=== PATIENT | male | born 1995 | race African-American/Black ===

== ENCOUNTER 2019-05-14 15:56 | Observation (INO) | payer BC ==
[2019-05-14] MEDS ORDERED: MORPHINE 2 MG/ML SYR ONE ×2 (16:55→19:43)
[2019-05-14] MEDS ORDERED: NA CHLORIDE 0.9% 1,000 ML ONE (16:56)
[2019-05-14] MEDS ORDERED: ONDANSETRON 4 MG/2 ML VIAL ONE (16:56)
[2019-05-14 17:02] LABS: Absolute Lymphocytes (CBC) 0.7 K/uL (0.7-4.9); Basophils % 0.3 % (0-1.3); Hematocrit 43.8 % (39.6-49.0); Lymphocytes % 9.8 % (15.3-44.8); MPV 8.4 fL (7.6-11.3); RBC Red Blood Cell Count 5.03 M/uL (4.33-5.43)
[2019-05-14 17:13] LABS: ALT/SGPT 18 U/L (12-78); AST/SGOT 16 U/L (15-37); Albumin 3.9 g/dL (3.4-5.0); Alkaline Phosphatase 70 U/L (45-117); BUN Blood Urea Nitrogen 17 mg/dL (7-18); Bicarbonate 28 mmol/L (21-32); Bilirubin Direct 0.1 mg/dL (0-0.2); Bilirubin Total 0.3 mg/dL (0.2-1.0); Glucose Level 103 mg/dL (74-106); Lipase 81 U/L (73-393); Potassium 3.8 mmol/L (3.5-5.1); Protein, Total 7.8 g/dL (6.4-8.2); Sodium Level 139 mmol/L (136-145)
--- NOTE | 2019-05-14 19:08 | RAD REPORT ---
EXAM DESCRIPTION: CT - Abdomen Pelvis W Contrast - 05/14/2019 6:47 pm CLINICAL HISTORY: Abdominal pain. Vomiting COMPARISON: 2010 TECHNIQUE: Computed axial tomography of the abdomen and pelvis was obtained. 100 cc Isovue-300 is ad ministered intravenously. Oral contrast was given. All CT scans are performed using dose optimization technique as appropriate and may include automated exposure control or mA/KV adjustment according to patient size. FINDINGS: The liver, spleen, pancreas, adrenals and kidneys appear unremarkable. The proximal and mid appendix are normal. The distal appendix is borderline enlarged. Stranding withi n the adjacent fat is not seen. Trace amount of free fluid No evidence of diverticulitis IMPRESSION: Borderline thickening of the distal appendix is equivocal for mild tip appendicitis
--- NOTE | 2019-05-14 19:41 | ER ---
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 Reports vomiting, denies diarrhea, fever. Transition of care: patient was not received from another setting of care. Onset of symptoms was May 14, 2019. Risk Assessment: Do you want to hurt yourself or someone else? Patient reports no desire to harm self or others. Initial Sepsis Screen: Does the patient meet any 2 criteria? No. Patient's initial sepsis screen is negative. Does the patient have a suspected source of infection? Yes: Acute abdominal pain. Care prior to arrival: None. 16:03 Method Of Arrival: Ambulatory aj 16:03 Acuity: CECE 3 aj1 Triage Assessment: 16:06 General: Appears uncomfortable, Behavior is calm, cooperative, appropriate for age. aj1 Pain: Complains of pain in abdomen diffusely. Neuro: Level of Consciousness is awake, alert, obeys commands. Cardiovascular: Patient's skin is warm and dry. Respiratory: Airway is patent Respiratory effort is even, unlabored, Respiratory pattern is regular, symmetrical. GI: Reports lower abdominal pain, upper abdominal pain, nausea, vomiting. Historical: - Allergies: 16:06 NKA; aj1 - Home Meds: 16:06 None [Active]; aj1 - PMHx: 16:06 None; aj1 - PSHx: 16:06 Hernia repair; aj1 - Immunization history:: Adult Immunizations up to date. - Coronavirus screen:: The patient has NOT traveled to [place] in the past 14 days. - Social history:: Smoking status: Patient/guardian denies using tobacco. - Ebola Screening: : Patient denies travel to an Ebola-affected area in the 21 days before illness onset. Screenin:30 Abuse screen: Denies threats or abuse. Nutritional screening: No deficits noted. vc Tuberculosis screening: No symptoms or risk factors identified. Fall Risk None identified. Assessment: 16:15 GI: Bowel sounds present X 4 quads. Abd is soft Abdomen is tender to palpation in vc umbilical area, right lower quadrant and left lower quadrant. 16:15 General: Appears uncomfortable, Behavior is calm, cooperative, appropriate for age, vc quiet. Pain: Complains of pain in left lower quadrant and right lower quadrant and umbilical area. Neuro: Level of Consciousness is obeys commands, Oriented to person, place, time, situation. Cardiovascular: Capillary refill < 3 seconds Patient's skin is warm and dry. Respiratory: Respiratory effort is even, unlabored, Respiratory pattern is regular, symmetrical. : No signs and/or symptoms were reported regarding the genitourinary system. EENT: No signs and/or symptoms were reported regarding the EENT system. Derm: Skin temperature is warm. Musculoskeletal: Circulation, motion, and sensation intact. Capillary refill < 3 seconds, Range of motion: intact in all extremities. 17:00 Reassessment: Patient and/or family updated on plan of care and expected duration. Pain vc level reassessed. patient laying with. 18:00 Reassessment: Patient and/or family updated on plan of care and expected duration. Pain vc level reassessed. Patient states feeling better. 19:00 Reassessment: Patient and/or family updated on plan of care and expected duration. Pain vc level reassessed. Patient is alert, oriented x 3, equal unlabored respirations, skin warm/dry/pink. Patient states feeling better. Patient states symptoms have improved. 20:00 Reassessment: Patient and/or family updated on plan of care and expected duration. Pain vc level reassessed. Patient is alert, oriented x 3, equal unlabored respirations, skin warm/dry/pink. Patient states feeling better. 20:45 Reassessment: Patient and/or family updated on plan of care and expected duration. Pain vc level reassessed. Patient is alert, oriented x 3, equal unlabored respirations, skin warm/dry/pink. Patient states symptoms have improved. Neuro: Level of Consciousness is awake, alert, obeys commands, Oriented to person, place, time, situation, Appropriate for age. Vital Signs: 16:06 BP 116 / 72; Pulse 55; Resp 18; Temp 98.2; Pulse Ox 100% on R/A; Weight 415.04 kg (R); aj1 Height 6 ft. 1 in. (185.42 cm) (R); Pain 8/10; 18:00 BP 117 / 67; Pulse 55; Resp 16; Pulse Ox 98% on R/A; vc 18:30 BP 116 / 68; Pulse 51; Pulse Ox 98% on R/A; vc 19:30 BP 124 / 63; Pulse 58; Resp 18; Pulse Ox 100% on R/A; vc 20:30 BP 141 / 84; Pulse 54; Resp 20; Pulse Ox 100% on R/A; vc 16:06 Body Mass Index 120.72 (415.04 kg, 185.42 cm) aj1 ED Course: 16:02 Patient arrived in ED. mr 16:05 Triage completed. aj1 16:06 Arm band placed on Patient placed in an exam room. aj1 16:09 Armaan Phillips MD is Attending Physician. [facility] 16:09 Armaan Calles PA is PHCP. cp 16:30 Radiology exam delayed due to lab results not completed at this time. (BUN/Creatinine) nj IV insertion attempt and/or patient not having appropriate IV at this time. 16:30 Patient has correct armband on for positive identification. vc 16:34 Do Cook, DENIS is Primary Nurse. vc 19:39 Antonio Benavides MD is Hospitalizing Provider. cp 20:42 No provider procedures requiring assistance completed. Patient admitted, IV remains in ea place. 21:05 Urine Dipstick--Ancillary (enter results) Sent. vc Administered Medications: 16:50 Drug: Zofran 4 mg Route: IVP; Site: right antecubital; vc 17:30 Follow up: Response: No adverse reaction vc 16:50 Drug: NS 0.9% 1000 ml Route: IV; Rate: 1 bolus; Site: right antecubital; vc 16:50 Drug: morphine 2 mg Route: IVP; Site: right antecubital; vc 19:45 Drug: morphine 2 mg Route: IVP; Site: right antecubital; vc 20:45 Follow up: Response: No adverse reaction; Pain is decreased vc 19:45 Drug: Zosyn 3.375 grams Route: IVPB; Infused Over: 60 mins; Site: right antecubital; vc 20:45 Follow up: Response: No adverse reaction; IV Intake: 100ml vc 20:39 Drug: NS 0.9% 1000 ml Route: IV; Rate: 1 bolus; Site: right antecubital; ea 21:04 Follow up: IV Status: Infusion continued upon admission; IV Intake: 12ml vc Intake: 20:45 IV: 100ml; Total: 100ml. vc 21:04 IV: 12ml; Total: 112ml. vc Outcome: 19:39 Decision to Hospitalize by Provider. cp 20:43 Admitted to OR accompanied by nurse, via wheelchair, with chart, Report called to ea Report given to OR nurse 20:43 Condition: stable 20:43 Condition: stable vc 20:45 Patient left the ED. vc Signatures: Megan Munoz RN RN aj1 Armaan Phillips MD MD cha Rivera, Alexus mr Armaan Calles PA PA cp Jordan, Nathan nj Antunez, Elena, RN RN ea Calcote, Vanessa, RN RN vc Corrections: (The following items were deleted from the chart) 21:07 21:03 Patient left the ED. vc vc
--- NOTE | 2019-05-14 19:41 | EDPHYS ---
Physician Documentation [facility] Name: Mark Anthony Eli Age: 24 yrs Sex: Male : 1995 Arrival Date: 05/14/2019 Time: 16:[address] Private MD: AYDEE Physician Armaan Phillips HPI: 05/14 16:45 This 24 yrs old Black Male presents to ER via Ambulatory with complaints of Abdominal cp Pain, Vomiting. 16:45 The patient presents with abdominal pain in the lower abdomen, in the periumbilical cp area. Onset: The symptoms/episode began/occurred this morning. The symptoms radiate to Associated signs and symptoms: Pertinent positives: nausea and vomiting, Pertinent negatives: chest pain, constipation, diarrhea, fever, testicular pain. Patient reports history of hernia repair as child. Historical: - Allergies: 16:06 NKA; aj1 - Home Meds: 16:06 None [Active]; aj1 - PMHx: 16:06 None; aj1 - PSHx: 16:06 Hernia repair; aj1 - Immunization history:: Adult Immunizations up to date. - Coronavirus screen:: The patient has NOT traveled to [place] in the past 14 days. - Social history:: Smoking status: Patient/guardian denies using tobacco. - Ebola Screening: : Patient denies travel to an Ebola-affected area in the 21 days before illness onset. ROS: 16:51 Eyes: Negative for injury, pain, redness, and discharge. cp 16:51 Constitutional: Positive for poor PO intake, Negative for body aches, chills, fever. 16:51 ENT: Negative for drainage from ear(s), ear pain, sore throat, difficulty swallowing, difficulty handling secretions. 16:51 Cardiovascular: Negative for chest pain. 16:51 Respiratory: Negative for cough, shortness of breath, wheezing. 16:51 Abdomen/GI: Positive for abdominal pain, nausea and vomiting, Negative for diarrhea, constipation, black/tarry stool, rectal bleeding. 16:51 Back: Positive for radiated pain. 16:51 : Negative for urinary symptoms, testicular pain 16:51 Skin: Negative for rash. 16:51 Neuro: Negative for altered mental status, headache, weakness. 16:51 All other systems are negative. Exam: 16:53 Head/Face: Normocephalic, atraumatic. cp 16:53 Constitutional: The patient appears in no acute distress, alert, awake, non-toxic, well developed, well nourished, uncomfortable. 16:53 Eyes: Periorbital structures: appear normal, Conjunctiva: normal, no exudate, no injection, Sclera: no appreciated abnormality, Lids and lashes: appear normal, bilaterally. 16:53 ENT: External ear(s): are unremarkable, Nose: is normal, Mouth: Lips: moist, Oral mucosa: moist, Posterior pharynx: Airway: no evidence of obstruction, patent. 16:53 Chest/axilla: Inspection: normal, Palpation: is normal, no crepitus, no tenderness. 16:53 Cardiovascular: Rate: bradycardic, Rhythm: regular. 16:53 Respiratory: the patient does not display signs of respiratory distress, Respirations: normal, no use of accessory muscles, labored breathing, is not present, Breath sounds: are clear throughout, no decreased breath sounds. 16:53 Abdomen/GI: Inspection: abdomen appears normal, Bowel sounds: active, all quadrants, Palpation: soft, in all quadrants, moderate abdominal tenderness, in the umbilical area, right lower quadrant and left lower quadrant, rebound tenderness, is not appreciated, voluntary guarding, is elicited in the umbilical area, right lower quadrant and left lower quadrant. Vital Signs: 16:06 BP 116 / 72; Pulse 55; Resp 18; Temp 98.2; Pulse Ox 100% on R/A; Weight 415.04 kg (R); aj1 Height 6 ft. 1 in. (185.42 cm) (R); Pain 8/10; 18:00 BP 117 / 67; Pulse 55; Resp 16; Pulse Ox 98% on R/A; vc 18:30 BP 116 / 68; Pulse 51; Pulse Ox 98% on R/A; vc 19:30 BP 124 / 63; Pulse 58; Resp 18; Pulse Ox 100% on R/A; vc 20:30 BP 141 / 84; Pulse 54; Resp 20; Pulse Ox 100% on R/A; vc 16:06 Body Mass Index 120.72 (415.04 kg, 185.42 cm) aj1 MDM: 16:09 Patient medically screened. hyaden 16:55 Differential diagnosis: appendicitis, gastritis, Pyelonephritis, Testicular Torsion, cp Ureterolithiasis, urinary tract infection, colitis, diverticulitis. 19:30 Data reviewed: vital signs, nurses notes, lab test result(s), radiologic studies, CT cp scan, I have discussed the patient's presentation/case with the attending Emergency Department Physician; and as a result, I will admit patient. 19:35 Physician consultation: Antonio Benavides MD was called at 19:35, was contacted at 19:35, cp regarding admission, to the medical/surgical unit. patient's condition. 05/14 16:26 Order name: Basic Metabolic Panel 05/14 16:26 Order name: CBC with Diff 05/14 16:26 Order name: Creatinine for Radiology 05/14 16:26 Order name: Hepatic Function cp 05/14 16:26 Order name: Lipase 05/14 16:26 Order name: Urine Microscopic Only 05/14 16:26 Order name: CT Abd/Pelvis - PO and IV Contrast 05/14 17:04 Order name: CBC with Automated Diff; Complete Time: 17:34 EDMS 05/14 17:34 Interpretation: Normal except: PEDRO% 84.8; LYM% 9.8. 05/14 17:10 Order name: Creatinine (Radiology Only); Complete Time: 17:34 EDMS 05/14 17:14 Order name: Basic Metabolic Panel; Complete Time: 17:34 EDMS 05/14 17:14 Order name: Liver (Hepatic) Function; Complete Time: 17:34 EDMS 05/14 17:34 Interpretation: Normal except: GLOB 3.9; A/G 1.0. cp 05/14 17:14 Order name: Lipase; Complete Time: 17:34 EDMS 05/14 19:09 Order name: CT; Complete Time: 19:21 EDWV 05/14 19:21 Interpretation: Report reviewed. 05/14 20:40 Order name: Urine Dipstick--Ancillary (enter results) cm6 05/14 16:26 Order name: IV Saline Lock; Complete Time: 18:02 cp 05/14 16:26 Order name: Labs collected and sent; Complete Time: 18:02 cp 05/14 16:26 Order name: Urine Dipstick-Ancillary (obtain specimen); Complete Time: 21:06 cp 05/14 19:37 Order name: NPO; Complete Time: 20:24 cp Administered Medications: 16:50 Drug: Zofran 4 mg Route: IVP; Site: right antecubital; vc 17:30 Follow up: Response: No adverse reaction vc 16:50 Drug: NS 0.9% 1000 ml Route: IV; Rate: 1 bolus; Site: right antecubital; vc 16:50 Drug: morphine 2 mg Route: IVP; Site: right antecubital; vc 19:45 Drug: morphine 2 mg Route: IVP; Site: right antecubital; vc 20:45 Follow up: Response: No adverse reaction; Pain is decreased vc 19:45 Drug: Zosyn 3.375 grams Route: IVPB; Infused Over: 60 mins; Site: right antecubital; vc 20:45 Follow up: Response: No adverse reaction; IV Intake: 100ml vc 20:39 Drug: NS 0.9% 1000 ml Route: IV; Rate: 1 bolus; Site: right antecubital; ea 21:04 Follow up: IV Status: Infusion continued upon admission; IV Intake: 12ml vc Disposition: 05/14/19 19:39 Hospitalization ordered by Antonio Benavides for Observation. Preliminary diagnosis is Acute appendicitis. - Bed requested for Telemetry/MedSurg (observation). - Status is Observation. vc - Condition is Stable. - Problem is new. - Symptoms have improved. Addendum: 05/17/2019 07:56 Co-signature as Attending Physician, Armaan Phillips MD I agree with the assessment and c salazar plan of care. Signatures: Dispatcher [employer] EDMegan Calhoun RN RN aj1 Sandra Aldrich RN RN mw Anderson, Corey, MD MD cha Page, Corey, PA PA cp Antunez, Elena, RN RN ea Calcote, Vanessa RN DENIS oates Corrections: (The following items were deleted from the chart) 05/14 20:05 19:39 Hospitalization Ordered by Antonio Benavides MD for Observation. Preliminary mw diagnosis is Acute appendicitis. Bed requested for Telemetry/MedSurg (observation). Status is Observation. Condition is Stable. Problem is new. Symptoms have improved. cp 21:03 20:05 05/14/2019 19:39 Hospitalization Ordered by Antonio Benavides MD for Observation. vc Preliminary diagnosis is Acute appendicitis. Bed requested for Telemetry/MedSurg (observation). Status is Observation. Condition is Stable. Problem is new. Symptoms have improved. mw
[2019-05-14] MEDS ORDERED: PIPER/TAZO/NS 3.375gm 3.375 GM/100 ML BAG ONE (19:43)
[2019-05-14] MEDS ORDERED: MORPHINE 4 MG/ML SYR IV PRN ×2 (19:48→23:11)
[2019-05-14] MEDS ORDERED: ONDANSETRON 4 MG/2 ML VIAL IV PRN (19:48)
[2019-05-14] MEDS: D5 0.45 NS 1,000 ML IV SCH (20:00)
[2019-05-14] MEDS ORDERED: SUCCINYLCHOLINE 20 MG/ML (10 ML) IV ONE (21:37)
[2019-05-14 21:44] LABS: Urine Blood NEGATIVE (NEG); Urine Glucose NEGATIVE (NEG); Urine Protein NEGATIVE (NEG)
[2019-05-14] MEDS ORDERED: propofoL 200 MG/20 ML VIAL IV ONE (21:45)
[2019-05-14] MEDS ORDERED: MIDAZOLAM HCL 2 MG/2 ML INJ ONE (21:45)
[2019-05-14] MEDS ORDERED: ROCURONIUM 50 MG/5 ML VIAL IV ONE (21:45)
[2019-05-14] MEDS ORDERED: FENTANYL CITR 250 MCG/5 ML ONE (21:45)
--- NOTE | 2019-05-14 21:52 | P.HP ---
Date of Service: 05/14/19 PC: This 24-year-old male presents emergency room with severe lower abdominal pain for diagnosis and treatment. HPC: Patient states that he has not felt well all week, and today he began to have pain in the lower portion of his abdomen. States it is actually just to the left of the lower midline. However hurts every time he walks, and the pain in the appears to be intensifying. PMH: Negative PSHx: No prior surgeries SOC: No known allergies SYS REVIEW: No cough, wheeze, shortness of breath. No chest pain or palpitations. No urinary complaints. Denies any hypertension, diabetes, or sickle cell. O/E awake alert vital signs are stable uncomfortable HEENT: Nonicteric Chest: Air entry equal bilaterally ABD: Tender with guarding in the right lower quadrant LOCO: Intact DATA: CT scan suggests early appendicitis at the distal appendix IMPRESSION: Acute abdomen with appendicitis PLAN: I will take him to the operating room for laparoscopic possible open appendectomy. The risks of this procedure have been discussed. The possibility of bleeding, infection, injury to the blood vessels and surrounding structures were explained. Abscess formation, wound infections were outlined. He understands and wants to proceed.
[2019-05-14] MEDS ORDERED: NEOSTIGMINE 1 MG/ML -5 ML ONE (22:32)
[2019-05-14] MEDS ORDERED: GLYCOPYRROLATE 0.2 MG/ML SYR ONE (22:33)
--- NOTE | 2019-05-14 22:46 | P.OP ---
Preoperative diagnosis: Acute abdomen Postoperative diagnosis: The same Primary procedure: Laparoscopic appendectomy Anesthesia: General anesthesia Estimated blood loss: Less than 10 cc Specimen: 9 sent Findings: Umbilical hernia Operative Technique: The patient brought the operating room placed supine on the table or after the induction of adequate general endotracheal anesthesia, the area then was prepped with a DuraPrep solution, and he was draped in usual aseptic manner. Attention was turned towards the emboli kiss. He had a large why the emboli kiss the header firm knot just beneath the plate. A skin incision was made this brought down through the skin and subcutaneous tissue. The Visiport was now used to enter the peritoneal cavity. We could see we were cutting through scar tissue and indeed be in countered a Prolene suture. We were then able to enter the peritoneal cavity and created pneumoperitoneum to approximately 12 mm of mercury. Under direct vision a 5 mm trocar was placed in the lower midline, and another 5 in the right upper quadrant. We could now visualize the peritoneal cavity. The cecum was identified. It was retracted up out of the true pelvis. The patient had been also placed in Trendelenburg and rolled to the left. The appendix was identified. It was noted mildly congested. The junction of the appendix with the cecum was identified. An opening was made into the mesentery of the appendix at this point. A linear Stapler was now introduced into the peritoneal cavity at the umbilical trocar site. The 5 mm camera was in the right upper quadrant. We could see the we are across. The instrument was fired. The mesentery of the appendix was now taken down using a vascular reload. This pus was placed into an Endo-Catch and brought out through the umbilical trocar site. The abdomen was quickly scan to see if there is any other intra-abdominal pathology. Nothing obvious was seen. Attention was turned towards the emboli kiss. 2 sutures of absorbable material used to approximate the facile defect at the emboli kiss. At this point adequate hemostasis having been ensured, the pneumoperitoneum was collapsed, the sutures tied, and alejandra were applied to the skin. At the end of the procedure he was stable when sent to the recovery room. Needle sponge instrument count were correct. No drains were placed. Complications: None Transferred to: Recovery Room Condition: Good
[2019-05-14] MEDS ORDERED: HYDROCODONE/APAP 7.5/325 MG TAB PO PRN (23:11)
[2019-05-15] MEDS: D5 0.45 NS 1,000 ML IV SCH ×2 (00:18→04:00)
[2019-05-15 01:30] VITALS: BMI 24.1
[2019-05-15 04:07] VITALS: O2SAT 100
[2019-05-15] MEDS ORDERED: INFLUENZA VACCINE (for 3y+) 0.5 ML DOSE IMVAC ONE (08:00)
[2019-05-15 08:40] VITALS: BP 131/74; TEMP 98
== END 2019-05-15 10:41 | disposition home health service (06) ==
LOC: ER 15:56 → ERHOLD 19:47 → 2ND 20:58
PROVIDERS: ADMIT Surgery; ATTEND Surgery
PROC: 0DTJ4ZZ Resection of Appendix, Percutaneous Endoscopic Approach (ICD-10-PCS; principal; 2019-05-14 21:30)
DX: K35.80 Unspecified acute appendicitis (principal)
CPT/HCPCS: 85025; 80048; 36415; 80076; 88304; 81003; 83690; 74177; 96375; 96374; 99285; 44970; Q9967; J2704; J0330; J2250; J3010; J2543; J2270 ×2; J2710; J7799; J7030; J2405 ×2; G0378 ×2

== ENCOUNTER 2019-05-16 09:03 | Emergency (ER) | payer BC ==
[2019-05-16] MEDS ORDERED: ONDANSETRON 4 MG (ODT) TAB ONE (09:44)
--- NOTE | 2019-05-16 10:23 | ER ---
Nurse's Notes [facility] Name: Mark Anthony Eli Age: 24 yrs Sex: Male : 1995 Arrival Date: 05/16/2019 Time: 09:06 Bed 8 Private MD: Diagnosis: Encounter for wound check Presentation: 05/16 09:19 Presenting complaint: Patient states: I had my appendix out at 2130 on 05/14/19. I think ch one of my alejandra is coming out and the Hydrocodone they gave me for pain is not helping. I cannot stand up right, it hurts too much. Transition of care: patient was not received from another setting of care. Onset of symptoms was May 15, 2019 at 08:00. Risk Assessment: Do you want to hurt yourself or someone else? Patient reports no desire to harm self or others. Initial Sepsis Screen: Does the patient meet any 2 criteria? No. Patient's initial sepsis screen is negative. Does the patient have a suspected source of infection? No. Patient's initial sepsis screen is negative. Care prior to arrival: Medication(s) given: hydrocodone. 09:19 Method Of Arrival: Wheelchair 09:19 Acuity: CECE 5 ch Triage Assessment: 09:21 General: Appears in no apparent distress. comfortable, Behavior is calm, cooperative, ch appropriate for age. Pain: Complains of pain in abdomen. Cardiovascular: No deficits noted. Respiratory: No deficits noted. Derm: Skin is healthy with good turgor, Skin is dry, Skin is normal, black. Historical: - Allergies: 09: NKA; ch - Home Meds: : [place] Oral [Active]; ch - PMHx: 09:21 None; - PSHx: 09:21 Appendectomy; Hernia repair; Knee surgery; - Immunization history:: Adult Immunizations up to date, Flu vaccine is up to date. - Coronavirus screen:: The patient has NOT traveled to [place] in the past 14 days. The patient has NOT had contact with known/suspected case of Coronavirus?. - Social history:: Smoking status: Patient denies any tobacco usage or history of. Patient/guardian denies using alcohol, street drugs. - Ebola Screening: : Patient negative for fever greater than or equal to 101.5 degrees Fahrenheit, and additional compatible Ebola Virus Disease symptoms Patient denies exposure to infectious person Patient denies travel to an Ebola-affected area in the 21 days before illness onset No symptoms or risks identified at this time. Screenin:14 Abuse screen: Denies threats or abuse. Denies injuries from another. Nutritional ch screening: No deficits noted. Tuberculosis screening: No symptoms or risk factors identified. Fall Risk None identified. Assessment: 10:14 Reassessment: Patient appears in no apparent distress at this time. No changes from previously documented assessment. Patient and/or family updated on plan of care and expected duration. Pain level reassessed. Patient is alert, oriented x 3, equal unlabored respirations, skin warm/dry/pink. 10:14 Neuro: No deficits noted. Cardiovascular: No deficits noted. Respiratory: No deficits ch noted. Injury Description: pt has healing post surgical wounds on stomach, pt has slight opening on lower bellybutton. no signs of wound dehiscences. pt is tender to abdomen, reports nausea with palpation pt has small amount of bright red blood. Vital Signs: 09:21 BP 125 / 77; Pulse 50; Resp 12; Temp 98; Pulse Ox 99% on R/A; Weight 97.52 kg; Height 6 ch ft. 1 in. (185.42 cm); Pain 5/10; 10:14 BP 129 / 84; Pulse 52; Resp 14; Temp 98.1(O); Pulse Ox 96% ; Pain 5/10; ch 09:21 Body Mass Index 28.36 (97.52 kg, 185.42 cm) ED Course: 09:06 Patient arrived in ED. rg4 09:13 Karan Oneal PA is PHCP. jr8 09:13 Armaan Phillips MD is Attending Physician. jr8 09:19 Xochilt Lazo, DENIS is Primary Nurse. ch 09:20 Triage completed. ch 09:21 Arm band placed on left wrist. Patient placed in an exam room, on a stretcher, on pulse oximetry. 09:22 Patient has correct armband on for positive identification. Placed in gown. Bed in low ch position. Call light in reach. Side rails up X 1. Adult w/ patient. Pulse ox on. NIBP on. Warm blanket given. Verbal reassurance given. 09:30 No provider procedures requiring assistance completed. Patient did not have IV access during this emergency room visit. Wound care: to post surgical located on umbilical area was cleaned with with normal saline, dressed with band aid, Karan assesses wound site and alejandra. post surgical wound is healing well, slight opening but it is shallow and bleeding is controlled. no signs of dehiscence , Patient tolerated well. 10:22 Antonio Benavides MD is Referral Physician. jr8 Administered Medications: 09:42 Drug: Zofran 4 mg Route: PO; sg 10:24 Follow up: Response: No adverse reaction ch Outcome: : Discharge ordered by . jr8 10:28 Discharged to home via wheelchair, with family. 10:28 Condition: improved 10:28 Discharge instructions given to patient, family, Instructed on discharge instructions, follow up and referral plans. medication usage, Demonstrated understanding of instructions, follow-up care, medications, Prescriptions given X 1. 10:29 Patient left the ED. Signatures: Xochilt Lazo RN DENIS Tito Bess RN RN Amisha Agustin RN RN Karan Oneal, ALEXIS ESPINOZA jrGinger Horner rg4
--- NOTE | 2019-05-16 10:24 | EDPHYS ---
Physician Documentation [facility] Name: Mark Anthony Eli Age: 24 yrs Sex: Male : 1995 Arrival Date: 05/16/2019 Time: 09:06 Bed 8 Private MD: ED Physician Armaan Phillips HPI: 05/16 10:17 This 24 yrs old Black Male presents to ER via Wheelchair with complaints of Post jr8 Surgical Bleeding, Post Surgical Pain. 10:17 Onset: The symptoms/episode began/occurred acutely, yesterday. Associated signs and jr8 symptoms: The patient has no apparent associated signs or symptoms. The patient has not experienced similar symptoms in the past. The patient has been recently seen by a physician:. Patient status post up day 2 from appendectomy. Stated that he noticed some bleeding to umbilical site . Historical: - Allergies: : NKA; ch - Home Meds: : [place] Oral [Active]; ch - PMHx: : None; ch - PSHx: :21 Appendectomy; Hernia repair; Knee surgery; ch - Immunization history:: Adult Immunizations up to date, Flu vaccine is up to date. - Coronavirus screen:: The patient has NOT traveled to [place] in the past 14 days. The patient has NOT had contact with known/suspected case of Coronavirus?. - Social history:: Smoking status: Patient denies any tobacco usage or history of. Patient/guardian denies using alcohol, street drugs. - Ebola Screening: : Patient negative for fever greater than or equal to 101.5 degrees Fahrenheit, and additional compatible Ebola Virus Disease symptoms Patient denies exposure to infectious person Patient denies travel to an Ebola-affected area in the 21 days before illness onset No symptoms or risks identified at this time. ROS: 10:17 Eyes: Negative for injury, pain, redness, and discharge, ENT: Negative for injury, jr8 pain, and discharge, Neck: Negative for injury, pain, and swelling, Cardiovascular: Negative for chest pain, palpitations, and edema, Respiratory: Negative for shortness of breath, cough, wheezing, and pleuritic chest pain, Abdomen/GI: Negative for abdominal pain, nausea, vomiting, diarrhea, and constipation, Back: Negative for injury and pain, MS/Extremity: Negative for injury and deformity, Skin: Negative for injury, rash, and discoloration, Neuro: Negative for headache, weakness, numbness, tingling, and seizure. Exam: 10:17 Eyes: Pupils equal round and reactive to light, extra-ocular motions intact. Lids and jr8 lashes normal. Conjunctiva and sclera are non-icteric and not injected. Cornea within normal limits. Periorbital areas with no swelling, redness, or edema. ENT: Nares patent. No nasal discharge, no septal abnormalities noted. Tympanic membranes are normal and external auditory canals are clear. Oropharynx with no redness, swelling, or masses, exudates, or evidence of obstruction, uvula midline. Mucous membranes moist. Neck: Trachea midline, no thyromegaly or masses palpated, and no cervical lymphadenopathy. Supple, full range of motion without nuchal rigidity, or vertebral point tenderness. No Meningismus. Cardiovascular: Regular rate and rhythm with a normal S1 and S2. No gallops, murmurs, or rubs. Normal PMI, no JVD. No pulse deficits. Respiratory: Lungs have equal breath sounds bilaterally, clear to auscultation and percussion. No rales, rhonchi or wheezes noted. No increased work of breathing, no retractions or nasal flaring. Back: No spinal tenderness. No costovertebral tenderness. Full range of motion. Skin: Warm, dry with normal turgor. Normal color with no rashes, no lesions, and no evidence of cellulitis. MS/ Extremity: Pulses equal, no cyanosis. Neurovascular intact. Full, normal range of motion. Neuro: Awake and alert, GCS 15, oriented to person, place, time, and situation. Cranial nerves II-XII grossly intact. Motor strength 5/5 in all extremities. Sensory grossly intact. Cerebellar exam normal. Normal gait. 10:17 Abdomen/GI: Inspection: Patient has three trochar sites noted to abdomen. Umbilical one with mild occasional oozing of blood noted. No dehiscence. Arielle still in place. Mild pain to palpation of surgical sites. No erythema or signs for infection. No large amount of blood that could be expressed with palpation, Bowel sounds: active, all quadrants, Palpation: soft, in all quadrants, rebound tenderness, is not appreciated, voluntary guarding, is not appreciated, involuntary guarding, is not appreciated, no appreciated organomegaly. Vital Signs: 09:21 BP 125 / 77; Pulse 50; Resp 12; Temp 98; Pulse Ox 99% on R/A; Weight 97.52 kg; Height 6 ch ft. 1 in. (185.42 cm); Pain 5/10; 10:14 BP 129 / 84; Pulse 52; Resp 14; Temp 98.1(O); Pulse Ox 96% ; Pain 5/10; ch 09:21 Body Mass Index 28.36 (97.52 kg, 185.42 cm) ch MDM: 09:16 Patient medically screened. [facility] 10:17 Data reviewed: vital signs, nurses notes, and as a result, I will discharge patient. jr8 Data interpreted: Pulse oximetry: on room air is 99 %. Interpretation: normal. Counseling: I had a detailed discussion with the patient and/or guardian regarding: the historical points, exam findings, and any diagnostic results supporting the discharge/admit diagnosis, the need for outpatient follow up, a general surgeon, to return to the emergency department if symptoms worsen or persist or if there are any questions or concerns that arise at home. ED course: Patient has f/u with Dr. Benavides this Friday. Discussed with family that there was only mild amount of blood without continuous drainage. Recommended to continue dressing changes and to f/u with Dr. Benavides as scheduled. Nothing else that needs to be done emergently at this time. If bleeding were to worsen to come back to ED for further evaluation . Administered Medications: 09:42 Drug: Zofran 4 mg Route: PO; sg 10:24 Follow up: Response: No adverse reaction Disposition: 05/17 08:28 Co-signature as Attending Physician, Armaan Phillips MD I agree with the assessment and [facility] plan of care. Disposition: 05/16/19 10:23 Discharged to Home. Impression: Encounter for wound check . - Condition is Stable. - Discharge Instructions: Incision Care, Adult, Seroma. - Prescriptions for Zofran ODT 4 mg Oral tablet,disintegrating - place 1 tablet by TRANSLINGUAL route every 8 hours As needed; 12 tablet. - Medication Reconciliation Form, Thank You Letter, Antibiotic Education, Prescription Opioid Use form. - Follow up: Antonio Benavides MD; When: 5 - 6 days; Reason: Wound Recheck, Recheck today's complaints, Re-evaluation by your physician. - Problem is new. - Symptoms have improved. Signatures: Xochilt Lazo, RN RN Tito Bess RN RN Armaan Phillips MD MD cha Smirch, Shelby, RN RN Karan Oneal PA PA jr8 Corrections: (The following items were deleted from the chart) 05/16 10:29 10:23 05/16/2019 10:23 Discharged to Home. Impression: Encounter for wound check . ss Condition is Stable. Forms are Medication Reconciliation Form, Thank You Letter, Antibiotic Education, Prescription Opioid Use. Follow up: Antonio Benavides; When: 5 - 6 days; Reason: Wound Recheck, Recheck today's complaints, Re-evaluation by your physician. Problem is new. Symptoms have improved. jr8
[2019-05-16 10:41] VITALS: BP 129/84; TEMP 98.1; O2SAT 96
== END 2019-05-16 10:29 | disposition home or self-care (01) ==
LOC: ER 09:03
DX: Z48.01 Encounter for change or removal of surgical wound dressing (principal); Z98.890 Other specified postprocedural states
CPT/HCPCS: 99284

== ENCOUNTER 2023-01-28 13:21 | Emergency (ER) | payer BC, SELFPAY ==
[2023-01-28 14:02] LABS: SARS-CoV-2 Antigen Rapid Res Negative (Negative)
--- NOTE | 2023-01-28 14:35 | ER ---
Nurse's Notes [facility] Name: Mark Anthony Eli Age: 27 yrs Sex: Male : 1995 Arrival Date: 01/28/2023 Time: 13:21 Bed DIS3 Private MD: Diagnosis: Acute upper respiratory infection, unspecified Presentation: 01/28 13:27 Chief complaint: Headache, cough, pain with cough, and sore throat x 4 days. hb Coronavirus screen: Client presents with at least one sign or symptom that may indicate coronavirus-19. Standard/surgical mask placed on the client. Provider contacted for isolation considerations. Ebola Screen: No symptoms or risks identified at this time. Initial Sepsis Screen: Does the patient meet any 2 criteria? No. Patient's initial sepsis screen is negative. Does the patient have a suspected source of infection? No. Patient's initial sepsis screen is negative. Risk Assessment: Do you want to hurt yourself or someone else? Patient reports no desire to harm self or others. Onset of symptoms was January 24, 2023. 13:27 Method Of Arrival: Ambulatory hb 13:27 Acuity: CECE 4 hb Triage Assessment: 13:28 General: Appears in no apparent distress. Behavior is calm, cooperative. Pain: Pain hb currently is 6 out of 10 on a pain scale. Neuro: Level of Consciousness is awake, alert, obeys commands, Oriented to person, place, time, situation. Cardiovascular: Patient's skin is warm and dry. Respiratory: Respiratory effort is even, unlabored, Respiratory pattern is regular, symmetrical. Historical: - Allergies: 13:28 NKA; hb - Home Meds: 13:28 None [Active]; hb - PMHx: 13:28 None; hb - PSHx: 13:28 Appendectomy; Knee - Left; Hernia Repair; hb - Immunization history:: Adult Immunizations up to date. - Social history:: Smoking status: Patient denies any tobacco usage or history of. - Family history:: not pertinent. - Hospitalizations: : No recent hospitalization is reported. Screenin:[facility] ED Fall Risk Assessment (Adult) Score/Fall Risk Level 0 - 2 = Low Risk hb Oriented to surroundings, Maintained a safe environment. Abuse screen: Denies threats or abuse. Denies injuries from another. Nutritional screening: No deficits noted. Tuberculosis screening: No symptoms or risk factors identified. Assessment: 13:39 General: See triage assessment.. hb Vital Signs: 13:27 BP 115 / 68; Pulse 74; Resp 16; Temp 98.2(TE); Pulse Ox 98% on R/A; Weight 104.33 kg; hb Height 6 ft. 2 in. ; Pain 6/10; 14:40 BP 114 / 69; Pulse 74; Resp 15; Temp 98.2; Pulse Ox 100% ; jl7 13:27 Body Mass Index 29.53 (104.33 kg, 187.96 cm) hb 13:27 Pain Scale: Adult hb ED Course: 13:24 Patient arrived in ED. im 13:28 Triage completed. hb 13:29 Arm band placed on. hb 13:31 Chandler Farnsworth MD is Attending Physician. rn 13:56 Patient has correct armband on for positive identification. Provided Education on: . hb 13:56 No provider procedures requiring assistance completed. Patient did not have IV access hb during this emergency room visit. Administered Medications: No medications were administered Medication: 14:40 VIS not applicable for this client. jl7 Outcome: 14:35 Discharge ordered by . rn 14:40 Discharged to home ambulatory, jl7 14:40 Condition: stable 14:40 Discharge instructions given to patient, Instructed on discharge instructions, follow up and referral plans. medication usage, Demonstrated understanding of instructions, follow-up care, medications, Prescriptions given X 1, 14:41 Patient left the ED. jl7 Signatures: Chandler Farnsworth MD MD rn Baxter, Heather RN Irvin Mireles RN RN jl7 Mendoza, Itzel Corrections: (The following items were deleted from the chart) 13:29 13:28 Allergies: No Known Allergies; hb hb
--- NOTE | 2023-01-28 14:35 | EDPHYS ---
Physician Documentation [facility] Name: Mark Anthony Eli Age: 27 yrs Sex: Male : 1995 Arrival Date: 01/28/2023 Time: 13:21 Bed DIS3 Private MD: ED Physician Chandler Farnsworth HPI: 01/28 13:59 This 27 yrs old Black Male presents to ER via Ambulatory with complaints of Flu rn Symptoms. 13:59 The patient or guardian reports cough, flu symptoms, low-grade fever, no appetite. rn Onset: The symptoms/episode began/occurred 4 day(s) ago. Severity of symptoms: At their worst the symptoms were mild, in the emergency department the symptoms are unchanged. Modifying factors: The symptoms are alleviated by nothing, the symptoms are aggravated by nothing. Associated signs and symptoms: Pertinent positives: rhinorrhea, sore throat, Pertinent negatives: chest pain. The patient has not experienced similar symptoms in the past. The patient has not recently seen a physician. Multiple sick family members recently.. Historical: - Allergies: 13:28 NKA; hb - Home Meds: 13:28 None [Active]; hb - PMHx: 13:28 None; hb - PSHx: 13:28 Appendectomy; Knee - Left; Hernia Repair; hb - Immunization history:: Adult Immunizations up to date. - Social history:: Smoking status: Patient denies any tobacco usage or history of. - Family history:: not pertinent. - Hospitalizations: : No recent hospitalization is reported. ROS: 13:59 Constitutional: Positive for subjective fever and chills Eyes: Negative for injury, rn pain, redness, and discharge, ENT: Positive for nasal congestion and sore throat Cardiovascular: Negative for chest pain, palpitations, and edema, Respiratory: Positive for cough, negative for shortness of breath Abdomen/GI: Negative for abdominal pain MS/Extremity: Negative for injury and deformity, Skin: Negative for injury, rash, and discoloration, Neuro: Negative for weakness, numbness, tingling, and seizure, Exam: 13:59 Constitutional: This is a well developed, well nourished patient who is awake, alert, rn and in no acute distress. Head/Face: Normocephalic, atraumatic. Eyes: Periorbital areas with no swelling, redness, or edema. ENT: No stridor, moist mucous membranes Neck: Trachea midline, no masses palpated, and no cervical lymphadenopathy. Supple, full range of motion without nuchal rigidity, or vertebral point tenderness. No Meningismus. Cardiovascular: Regular rate and rhythm. No pulse deficits. Respiratory: No increased work of breathing, no retractions or nasal flaring. Abdomen/GI: Soft, non-tender Vital Signs: 13:27 BP 115 / 68; Pulse 74; Resp 16; Temp 98.2(TE); Pulse Ox 98% on R/A; Weight 104.33 kg; hb Height 6 ft. 2 in. ; Pain 6/10; 14:40 BP 114 / 69; Pulse 74; Resp 15; Temp 98.2; Pulse Ox 100% ; jl7 13:27 Body Mass Index 29.53 (104.33 kg, 187.96 cm) hb 13:27 Pain Scale: Adult hb MDM: 13:31 Patient medically screened. rn 14:34 Differential Diagnosis: Bronchitis Influenza Upper Respiratory Infection Sinusitis rn Pharyngitis Viral Syndrome. Data reviewed: vital signs, nurses notes, lab test result(s), and as a result, I will discharge patient. Counseling: I had a detailed discussion with the patient and/or guardian regarding the historical points, exam findings, and any diagnostic results supporting the discharge/admit diagnosis, lab results, the need for outpatient follow up, to return to the emergency department if symptoms worsen or persist or if there are any questions or concerns that arise at home. Special discussion: I discussed with the patient/guardian in detail that at this point there is no indication for admission to the hospital. It is understood, however, that if the symptoms persist or worsen the patient needs to return immediately for re-evaluation. 01/28 13:35 Order name: Flu; Complete Time: 14:34 rn 01/28 13:35 Order name: Strep; Complete Time: 14:34 rn 01/28 13:35 Order name: SARS RAPID; Complete Time: 14:34 rn 01/28 14:03 Order name: Throat Culture EDMS Administered Medications: No medications were administered Disposition Summary: 01/28/23 14:35 Discharge Ordered Notes: Location: Home rn Problem: new rn Symptoms: have improved rn Condition: Stable rn Diagnosis - Acute upper respiratory infection, unspecified rn Followup: rn - With: Private Physician - When: As needed - Reason: Recheck today's complaints, Re-evaluation by your physician Discharge Instructions: - Discharge Summary Sheet rn - Upper Respiratory Infection, Adult rn Forms: - Work release form bd - Medication Reconciliation Form rn - Thank You Letter rn - Antibiotic intake rn - Prescription Opioid Use rn - Patient Portal Instructions rn - Leadership Thank You Letter rn Prescriptions: - Zithromax Z-Juan 250 mg Oral Tablet - take 1 tablet ORAL route as directed for 5 days Day 1 - take two (2) tablets rn one time. Day 2, 3, 4 , 5 take one (1) tablet once daily.; 6 tablet; Refills: 0, Product Selection Permitted Signatures: Dispatcher [employer] EDChandler Saunders MD MD rn Baxter, Heather, RN RN Corrections: (The following items were deleted from the chart) 13:29 13:28 Allergies: No Known Allergies; hb hb
[2023-01-28 14:56] VITALS: TEMP 98.2
[2023-01-28 14:58] VITALS: BP 114/69; O2SAT 100
== END 2023-01-28 14:41 | disposition home or self-care (01) ==
LOC: ER 13:21
DX: J06.9 Acute upper respiratory infection, unspecified (principal); Z11.52 Encounter for screening for COVID-19
CPT/HCPCS: 36415; 87070; 87081; 87804; 87811; 99283

== ENCOUNTER 2025-01-14 13:58 | Emergency (ER) | payer OTHER, SELFPAY ==
--- OUTSIDE RECORDS SUMMARY | 2025-01-14 14:02 | XMS REPORT | Continuity of Care Document ---
Author Name Unknown Address [address] [facility] [address] [place] [address] Organization [facility] [place] Address [address] [facility] [address] [place] [address] Care Team Providers Care Poster Name Role Phone YOHANNES BAKER Primary Care Physician Unavailab VILMA Ho Attending Clinician UnavailVILMA House Attending Clinician UnavailVilma House MD Attending Clinician CHRISTINA HERNANDEZ Attending Clinician Unavailable CHRISTINA HERNANDEZ Attending Clinician Unavailable Isis Stephenson Attending Clinician Isis FONTENOT Attending Clinician Unavailable CHRISTINA HERNANDEZ Admitting Clinician Unavailable Isis FONTENOT Admitting Clinician Unavailable Payers Payer Name Policy Type Policy Number Effective Date Expirati on Date Source ALLIED BENEFIT [id number] 2024 00:00:00 BLUE ESSENTIALS O [id number] 00:00:00 Allergies, Adverse Reactions, Alerts Allergy Name Allergy Type Status Severity Reaction(s) Onset Date Inactive Date Treating Clinician Comments Source NO KNOWN ALLERGIE S Drug Class Active [facility] Social History Social Habit Start Date Stop Date Quantity Comments Source Sexual orientation U [facility] Sex assigned at 1995 00:00:00 1995 00:00:00 [facility] Smoking Status Start Date Stop Date Source Tobacco smoking consumption unknown [facility] Medications Ordered Medication Name Filled Medication Name Start Date Stop Date Current Medication? Ordering Clinician Indication Dosage Frequency Signature (SIG) Comments Components Source naproxen sodium 550 mg tablet 10-13 00:00: 00 Yes [id number] 550mg Take 1 tablet by mouth in the morning and 1 tablet in the evening. Take with meals. [facility] methylPREDN ISolone 4 mg tablets 10-13 00:00: 00 Yes [id number] Take by mouth SEE-INSTRU CTIONS. follow package directions [facility] methocarbam oL 500 mg tablet 10-13 00:00: 00 10-19 04:59 :00 No [id number] 500mg Take 1 tablet by mouth in the morning and 1 tablet at noon and 1 tablet in the evening. Do all this for 5 days. [facility] iohexol (OMNIPAQUE 350 BULK-100 mL) injection 120 mL 07-16 02:30: 00 07-16 02:20 :00 No 120mL 120 mL, Intravenou s, ONCE, 1 dose, Fri07/16/19 at 2130, Routine [facility] morpHINE injection 4 mg 07-16 02:30: 00 07-16 01:22 :00 No 4mg 4 mg, Slow IV Push, ONCE, 1 dose, Fri07/16/19 at 2130, Routine [facility] ondansetron (ZOFRAN (PF)) injection 4 mg 07-16 02:15: 00 07-16 01:22 :00 No 4mg 4 mg, Slow IV Push, ONCE, 1 dose, Fri07/16/19 at 2115, SARITHA [facility] NaCl 0.9% (NS) bolus infusion 1,000 mL 07-16 02:15: 00 07-16 03:31 :00 No 1000mL at 999 mL/hr, 1,000 mL, IV Infusion, ONCE, 1 dose, 07/16/19 at 2115, STAT [facility] ondansetron (ZOFRAN ODT) 4 mg disintegrat ing tablet 07-15 00:00: 00 Yes [id number] 4mg Take 1 tablet by mouth every 8 (eight) hours as needed for Nausea and Vomiting (N/V). [facility] dicyclomine 20 mg tablet 07-15 00:00: 00 Yes [id number] 20mg Take 1 tablet by mouth 4 (four) times daily. [facility] Vital Signs Vital Name Observation Time Observation Value Comments S servando Systolic blood pressure 2024-10-26 14:57:00 129 mm[Hg] [facility] Diastolic blood pressure 2024-10-26 14:57:00 76 mm[Hg] [facility] Heart rate 2024-10-26 14:57:00 57 /min [facility] Body height 2024-10-26 14:57:00 188 cm [facility] Body weight 2024-10-26 14:57:00 108.41 kg [facility] BMI 2024-10-26 14:57:00 30.69 kg/m2 [facility] Oxygen saturation in Arterial blood by Pulse oximetry 2024-10-26 14:57:00 98 /min [facility] Systolic blood pressure 2024-10-13 06:47:00 151 mm[Hg] [facility] Diastolic blood pressure 2024-10-13 06:47:00 85 mm[Hg] [facility] Heart rate 2024-10-13 06:47:00 64 /min [facility] Body temperature 2024-10-13 06:47:00 37.06 Leann [facility] Respiratory rate 2024-10-13 06:47:00 20 /min [facility] Oxygen saturation in Arterial blood by Pulse oximetry 2024-10-13 06:47:00 97 /min [facility] Body height 2024-10-13 05:20:00 188 cm [facility] Body weight 2024-10-13 05:20:00 109.317 kg [facility] BMI 2024-10-13 05:20:00 30.94 kg/m2 [facility] Systolic blood pressure 2019-07-17 04:00:00 126 mm[Hg] [facility] Diastolic blood pressure 2019-07-17 04:00:00 58 mm[Hg] [facility] Heart rate 2019-07-17 04:00:00 48 /min [facility] Respiratory rate 2019-07-17 04:00:00 18 /min [facility] Oxygen saturation in Arterial blood by Pulse oximetry 2019-07-17 04:00:00 98 /min [facility] Body temperature 2019-07-17 00:14:00 36.94 Leann [facility] Body height 2019-07-17 00:14:00 185.4 cm [facility] Body weight 2019-07-17 00:14:00 99.791 kg [facility] BMI 2019-07-17 00:14:00 29.03 kg/m2 [facility] Procedures Procedure Date / Time Performed Performing Clinician Source CT ABDOMEN PELVIS W CONTRAST 2019-07-17 02:25:57 Isis Fontenot [facility] LIPASE 2019-07-17 01:21:00 Isis Fontenot [facility] MAGNESIUM 2019-07-17 01:21:00 [facility] COMP. METABOLIC PANEL (56000) 2019-07-17 01:21:00 Isis Fontenot [facility] CBC WITH DIFFERENTIAL 2019-07-17 01:21:00 Isis Fontenot [facility] URINALYSIS 2019-07-17 01:21:00 [facility] Encounters Start Date/Time End Date/Time Encounter Type Admission Type Attending Clinicians Care Facility Care Department Encounter ID Source 2024-11-30 00:00:00 2024-11-30 00:00:00 Outpatient VILMA HOUGH [facility] [id number] [facility] 2024-10-26 10:15:00 2024-10-26 10:15:57 [facility] [id number] [facility] 2024-10-13 00:25:00 2024-10-13 01:51:00 Emergency X CHRISTINA HERNANDEZ [facility] ERT [id number] [facility] 2019-07-16 19:18:06 2019-07-16 23:39:00 Emergency Juan [facility]onIsis [facility] [id number] [facility] 2019-07-16 19:18:06 2019-07-16 23:39:00 Emergency X Isis FONTENOT [facility] ERT [id number] [facility] Results Test Description Test Time Test Comments Results Result Comments Source CT ABDOMEN PELVIS W CONTRAST 2019-06 04:07:0 3 1. ?Borderline hepatomegaly with mild nonspecific periportal edema. Nofocal lesions are seen. 2. ?Mild splenomegaly and enlarged main portal vein suggest portalhypertension. 3. ?Heterogenous attenuation of the gallbladder may represent stones versussludge. Recommend right upper quadrant ultrasound, as clinically indicated.No evidence of biliary ductal dilatation. Preliminary Report Dictated by Resident: Jakob Galeas ?MD. Emeli, have reviewed this study and agree with theabove report.EXAM: CT ABDOMEN AND PELVIS WITH CONTRAST HISTORY: Generalized abdominal pain, infection suspected COMPARISON: None. TECHNIQUE AND FINDINGS: Contiguous axial imaging from the level of the lungbases through the pubic symphysis was performed after the uncomplicatedadministration of 120 cc of intravenous Omnipaque contrast. Coronal andsagittal reconstructions were obtained. ?Auto mA and/or iterativereconstruction were used to reduce radiation dose. FINDINGS: LOWER THORAX: The lungs bases are clear. No cardiomegaly. LIVER: No focal hepatic lesions. Borderline hepatomegaly. Normal contour.Nonspecific mild periportal edema is seen. GALLBLADDER AND BILIARY TREE: Heterogenous attenuation of the gallbladdermay represent stones versus sludge. No evidence of biliary ductaldilatation. SPLEEN: Borderline enlarged spleen measuring 14 cm. No focal lesions areseen. PANCREAS: No ductal dilation or masses. ADRENAL GLANDS: No adrenal nodules. KIDNEYS: No hydronephrosis, stones, or masses. PERITONEUM AND RETROPERITONEUM: No free air or fluid. LYMPH NODES: No lymphadenopathy. GI TRACT: No dilation or wall thickening. Post surgical changes of anappendectomy. PELVIS/BLADDER: Unremarkable. VESSELS: Enlarged main portal vein measuring 2 cm in diameter. BONES AND SOFT TISSUES: No suspicious lytic or sclerotic bony lesions. [facility], Radiant Results Inft User - 07/16/2019 11:08 PM CDTEXAM: CT ABDOMEN AND PELVIS WITH CONTRASTHISTORY: Generalized abdominal pain, infection suspectedCOMPARISON: None.TECHNIQUE AND FINDINGS: Contiguous axial imaging from the level of the lungbases through the pubic symphysis was performed after the uncomplicatedadministration of 120 cc of intravenous Omnipaque contrast. Coronal andsagittal reconstructions were obtained. Auto mA and/or iterativereconstruction were used to reduce radiation dose.FINDINGS:LOWER THORAX: The lungs bases are clear. No cardiomegaly.LIVER: No focal hepatic lesions. Borderline hepatomegaly. Normal contour.Nonspecific mild periportal edema is seen.GALLBLADDER AND BILIARY TREE: Heterogenous attenuation of the gallbladdermay represent stones versus sludge. No evidence of biliary ductaldilatation.SPLEEN: Borderline enlarged spleen measuring 14 cm. No focal lesions areseen.PANCREAS: No ductal dilation or masses.ADRENAL GLANDS: No adrenal nodules.KIDNEYS: No hydronephrosis, stones, or masses.PERITONEUM AND RETROPERITONEUM: No free air or fluid.LYMPH NODES: No lymphadenopathy.GI TRACT: No dilation or wall thickening. Post surgical changes of anappendectomy.PELVIS/BLADDER: Unremarkable.VESSELS: Enlarged main portal vein measuring 2 cm in diameter.BONES AND SOFT TISSUES: No suspicious lytic or sclerotic bony lesions.IMPRESSION1. Borderline hepatomegaly with mild nonspecific periportal edema. Nofocal lesions are seen.2. Mild splenomegaly and enlarged main portal vein suggest portalhypertension.3. Heterogenous attenuation of the gallbladder may represent stones versussludge. Recommend right upper quadrant ultrasound, as clinically indicated.No evidence of biliary ductal dilatation.Preliminary Report Dictated by Resident: Jakob Collins MD., have reviewed this study and agree with theabove report. [facility]54:00* Test Item Value Reference Range Interpretation Comme nts APPEARANCE (test code = 6892819294) Clear Clear COLOR (test code = 4527179128) Yellow Yellow PH (test code = 7500380410) 4.8-8.0 SP GRAVITY (test code = 2660954756) 1.003-1.030 GLU U QUAL (test code = 0783515883) Normal Normal BLOOD (test code = 4838697233) Negative Negative KETONES (test code = 0212069905) 20 mg/dL Negative A PROTEIN (test code = 2887-8) Negative Negative UROBILIN (test code = 0761424083) 2.0 mg/dL Normal A BILIRUBIN (test code = 9074753644) Negative Negative NITRITE (test code = 3903538653) Negative Negative LEUK CALE (test code = 9193068906) Negative Negative RBC/HPF (test code = 8329128930) <1 See_Comment [Automated [employer] ge] The system which generated this result transmitted reference range: 0 - 3 HPF. The reference range was not used to interpret this result as normal/abnormal. WBC/HPF (test code = 4172722659) See_Comment [Automated [employer]] The system which generated this result transmitted reference range: 0 - 5 HPF. The reference range was not used to interpret this result as normal/abnormal. BACTERIA (test code = 6094397298) Negative Negative MUCOUS (test code = 1050998015) Moderate Negative LPF A Lab Interpretation (test code = 50434-0) Abnormal [facility]. METABOLIC PANEL (64358)2019-07-17 01:46:00* Test Item Value Reference Range Interpretation Comme nts NA (test code = 1522288901) 140 mmol/L 135-145 K (test code = 9687843487) 3.5 mmol/L 3.5-5 CL (test code = 7138084289) 103 mmol/L 98-108 CO2 TOTAL (test code = 0922550115) 28 mmol/L 23-31 AGAP (test code = 3586971435) 2-16 BUN (test code = 6556938811) 22 mg/dL 7-23 GLUCOSE (test code = 6311320417) 104 mg/dL 70-110 CREATININE (test code = 9676943424) 1.13 mg/dL 0.6-1.25 TOTAL BILI (test code = 0055238262) 0.6 mg/dL 0.1-1.1 CALCIUM (test code = 6219177109) 9.7 mg/dL 8.6-10.6 T PROTEIN (test code = 7070353857) 8.5 g/dL 6.3-8.2 H ALBUMIN (test code = 1671643068) 4.7 g/dL 3.5-5 ALK PHOS (test code = 8270576846) 89 U/L 34-122 ALTv (test code = 1742-6) 271 U/L 5-50 H AST(SGOT) (test code = 4202065157) 226 U/L 13-40 H eGFR Calculation (Non-) (test code = 1358118282) mL/min/1.73m2 eGFR Calculation () (test code = 7450170979) mL/min/1.73m2 MIRTA (test code = MIRTA) Association of Glomerular Filtration Rate (GFR) and Staging of Kidney Disease* + --+ --+ ------+| GFR (mL/min/1.73 m2) ?| With Kidney Damage ?| ?Without Kidney Damage+ --------+ --------+ +| ?>90 ?| ?Stage one ?| ? Normal ?+ ---+ ---+ -------+| ?60-89 ?| ?Stage two ?| ? Decreased GFR ? + --+ --+ ------+| ?30-59 ?| ?Stage three ?| ? Stage three ? + --+ --+ ------+| ?15-29 ?| ?Stage four ? | ? Stage four ?+ ---+ ---+ -------+| ?<15 (or dialysis) ? ?| ?Stage five ? | ? Stage five ?+ ---+ ---+ -------+ *Each stage assumes the associated GFR level has been in effect for at least three months. ?Stages 1 to 5, with or without kidney disease, indicate chronic kidney disease. Notes: Determination of stages one and two (with eGFR >59mL/min/1.73 m2) requires estimation of kidney damage for at least three months as defined by structural or functional abnormalities of the kidney, manifested by either:Pathological abnormalities or Markers of kidney damage (including abnormalities in the composition of the blood or urine or abnormalities in imaging tests). Lab Interpretation (test code = 00003-9) [facility]* Test Item Value Reference Range Interpretation Comme nts MAGNESIUM (test code = 1828995138) 1.9 mg/dL 1.7-2.4 Lab Interpretation (test cod e = 97417-3) [facility]* Test Item Value Reference Range Interpretation Comme nts LIPASE (test code = 2683270255) 126 U/L 0-220 Lab Interpretation (test cod e = 72457-8) Normal [facility] Notes Date/Time Note Provider Source 2024-10-13 01:48:34 Awake, alert oriented X4, respiratory even and unlabored,skin w/d color appropriate for race, moves all ext well, pt encouraged to follow up with pcp and or return as needed Pt given printed and verbal discharge instructions regarding Acute pain left knee, knee swelling, sprain of left knee , patient verbralized understanding and signature obtained, patient denies any other concerns. Prescriptions provided Advised to seek medical attention for new/prolonged/worsening of symptoms, No adverse reaction to meds given in ER noted upon discharge Pt ambulated to the lobby with steady gait T [facility] [employer] 2024-10-13 00:24:51 Pt placed in the lobby, pt advice to notify nurse with any other concerns or if symptoms worsen. T [facility] [employer] 2024-10-13 00:20:04 C/O left knee pain that started after playing basketball yesterday. Pt states the pain has increased today especially when he walks Joceline Howell RN [facility]"
[2025-01-14] MEDS ORDERED: KETOROLAC 30 MG/ML INJ ONE (15:56)
[2025-01-14] MEDS ORDERED: ACETAMINOPHEN 500 MG TAB ONE (15:56)
--- NOTE | 2025-01-14 16:23 | RAD REPORT ---
EXAM: XR Knee Left 3 View HISTORY: [facility] MAIN Swelling;Pain Bed Name: IW3 COMPARISON: None TECHNIQUE: 3 views of the left knee were obtained. FINDINGS: Large knee effusion is seen. There is no evidence of acute fracture or dislocation. Sequel ae of ACL repair with an additional probably more remote internal present posterior to the tibial calculated screw.. Mild degenerative changes are seen. No soft tissue swelling or other soft tissue abnormality is present. IMPRESSION: No evidence of acute osseous abnormality. Mild degenerative changes and a large joint ef fusion. Sequelae of ACL repair as above.
--- NOTE | 2025-01-14 16:56 | ER ---
Nurse's Notes [facility] Name: Mark Anthony Eli Age: 29 yrs Sex: Male : 1995 Arrival Date: 01/14/2025 Time: 13:58 Bed 10 Private MD: Diagnosis: Effusion, left knee Presentation: 01/14 14:33 Chief complaint: Patient states: has problems with his left knee, the other day he iw moved it awkwardly and now it's swollen and in more pain. Coronavirus screen: At this time, the client does not indicate any symptoms associated with coronavirus-19. Ebola Screen: No symptoms or risks identified at this time. Initial Sepsis Screen: Does the patient meet any 2 criteria? No. Patient's initial sepsis screen is negative. Does the patient have a suspected source of infection? No. Patient's initial sepsis screen is negative. Risk Assessment: Do you want to hurt yourself or someone else? Patient reports no desire to harm self or others. Onset of symptoms was January 13, 2025. 14:33 Method Of Arrival: Ambulatory iw 14:33 Acuity: CECE 4 iw Triage Assessment: 16:00 General: Appears in no apparent distress. comfortable, Behavior is calm, cooperative. kb4 Pain: Complains of pain in left leg. 16:00 Musculoskeletal: Range of motion: limited in left knee. Injury Description: previous kb4 basketball injury. Historical: - Allergies: 14:35 NKA; iw - PSHx: 14:35 Appendectomy; hernia repair; Knee - Left; iw - Immunization history:: Adult Immunizations up to date. - Infectious Disease History:: Denies. - Social history:: Smoking status: Patient denies any tobacco usage or history of. Screenin:04 [facility] ED Fall Risk Assessment (Adult) History of falling in the last 3 months, kb4 including since admission No falls in past 3 months (0 pts) Confusion or Disorientation No (0 pts) Intoxicated or Sedated No (0 pts) Impaired Gait No (0 pts) Mobility Assist Device Used No (0 pt) Altered Elimination No (0 pt) Score/Fall Risk Level 0 - 2 = Low Risk. Abuse screen: Denies threats or abuse. Denies injuries from another. Nutritional screening: No deficits noted. Tuberculosis screening: No symptoms or risk factors identified. Vital Signs: 14:33 BP 130 / 63; Pulse 71; Resp 16; Temp 97.2; Pulse Ox 98% ; Pain 5/10; iw 16:00 BP 129 / 86; Pulse 88; Resp 18; Pulse Ox 100% on R/A; kb4 14:33 Pain Scale: Adult iw ED Course: 14:16 Patient arrived in ED. iw 14:19 [facility]C [facility] 14:19 Armaan Phillips MD is Attending Physician. dr5 14:35 Triage completed. iw 15:09 Knee Left 3 View XRAY In Process Unspecified. EDMS 15:46 Zoë Calix, DENIS is Primary Nurse. kb4 16:00 Arm band placed on. kb4 16:55 Tito Garza MD is Referral Physician. dr5 16:55 Davian Orozco MD is Referral Physician. dr5 17:04 Patient has correct armband on for positive identification. Bed in low position. Call kb4 light in reach. Provided Education on: crutches. 17:04 No provider procedures requiring assistance completed. Patient did not have IV access kb4 during this emergency room visit. Administered Medications: 16:08 Drug: Acetaminophen PO 1000 mg PO once Route: PO; kb4 16:30 Follow up: Response: No adverse reaction kb4 16:08 Drug: Ketorolac IM 30 mg IM once Route: IM; Site: right deltoid; kb4 16:30 Follow up: Response: No adverse reaction kb4 Medication: 16:10 VIS not applicable for this client. kb4 Outcome: 16:56 Discharge ordered by MD. dr5 17:04 Discharged to home ambulatory, kb4 17:04 Condition: good 17:04 Discharge instructions given to patient, Instructed on discharge instructions, follow up and referral plans. medication usage, Demonstrated understanding of instructions, follow-up care, medications, Prescriptions given X 2, 17:08 Patient left the ED. kb4 Signatures: Dispatcher [employer] EDMS Shantal Hernandez RN RN Dale Knight FNP-C HAND CUTTER-Cdr5 Zoë Calix, DENIS BARRIOS kb4 Corrections: (The following items were deleted from the chart) 15:00 14:33 Pulse 71bpm; Resp 16bpm; Pulse Ox 98%; Temp 97.2F; Pain 5/10, Adult; iw iw
--- NOTE | 2025-01-14 16:56 | EDPHYS ---
Physician Documentation [facility] Name: Mark Anthony Eli Age: 29 yrs Sex: Male : 1995 Arrival Date: 01/14/2025 Time: 13:58 Bed 10 Private MD: ED Physician Armaan Phillips HPI: 01/14 20:25 This 29 yrs old Black Male presents to ER via Ambulatory with complaints of Knee Injury dr5 - LT. 20:25 Onset: The symptoms/episode began/occurred 2 week(s) ago. Patient is a 29-year-old male dr5 with no Sylvia history coming in with left knee pain and swelling has been going on for the past 2 weeks. Patient has immobilizer on during triage. Patient reports he has had a previous ACL repair on the left knee. Patient states that he is been walking on left leg and is painful.. Historical: - Allergies: 14:35 NKA; iw - PSHx: 14:35 Appendectomy; hernia repair; Knee - Left; iw - Immunization history:: Adult Immunizations up to date. - Infectious Disease History:: Denies. - Social history:: Smoking status: Patient denies any tobacco usage or history of. ROS: 20:25 Constitutional: as per hpi dr5 Exam: 20:25 Constitutional: This is a well developed, well nourished patient who is awake, alert, dr5 and in no acute distress. Head/Face: Normocephalic, atraumatic. Eyes: Pupils equal round and reactive to light, extra-ocular motions intact. Lids and lashes normal. Conjunctiva and sclera are non-icteric and not injected. Cornea within normal limits. Periorbital areas with no swelling, redness, or edema. Neck: Trachea midline, no thyromegaly or masses palpated, and no cervical lymphadenopathy. Supple, full range of motion without nuchal rigidity, or vertebral point tenderness. No Meningismus. Chest/axilla: Normal chest wall appearance and motion. Nontender with no deformity. No lesions are appreciated. Cardiovascular: Regular rate and rhythm with a normal S1 and S2. Normal PMI, no JVD. No pulse deficits. Respiratory: Lungs have equal breath sounds bilaterally, clear to auscultation. No rales, rhonchi or wheezes noted. No increased work of breathing, no retractions or nasal flaring. Back: No spinal tenderness. No costovertebral tenderness. Full range of motion. Skin: Warm, dry with normal turgor. Normal color with no rashes, no lesions, and no evidence of cellulitis. Neuro: Awake and alert, GCS 15, oriented to person, place, time, and situation. Cranial nerves II-XII grossly intact. Motor strength 5/5 in all extremities. Sensory grossly intact. Cerebellar exam normal. Normal gait. 20:25 Musculoskeletal/extremity: Extremities: grossly normal except: noted in the left knee: swelling, tenderness, ROM: no acute changes, Circulation is intact in all extremities. Sensation intact. Vital Signs: 14:33 BP 130 / 63; Pulse 71; Resp 16; Temp 97.2; Pulse Ox 98% ; Pain 5/10; iw 16:00 BP 129 / 86; Pulse 88; Resp 18; Pulse Ox 100% on R/A; kb4 14:33 Pain Scale: Adult iw MDM: 14:19 Medical Screening Exam initiated dr5 20:25 Differential Diagnosis Fracture, effusion, sprain. Data reviewed: vital signs, nurses dr5 notes, radiologic studies, plain films. Consideration of Admission/Observation Escalation of care including admission/observation considered. Admission considered patient found to have open fracture or fever.. I considered the following discharge prescriptions or medication management in the emergency department I discussed and recommended Over The Counter medications, Medications were administered in the Emergency Department. See MAR. Independent interpretation of the following test(s) in the Emergency Department X-Ray: My interpretation is Independent interpretation of x-ray reveals moderate effusion without fracture. Care significantly affected by the following Social Determinants of Health: Poor access to healthcare and/or lack of insurance, Poor access to transportation, Problems related to employment. Counseling: I had a detailed discussion with the patient and/or guardian regarding the historical points, exam findings, and any diagnostic results supporting the discharge/admit diagnosis, the presence of at least one elevated blood pressure reading (>120/80) during this emergency department visit, radiology results, the need for outpatient follow up, for definitive care, a family practitioner, a orthopedic surgeon, to return to the emergency department if symptoms worsen or persist or if there are any questions or concerns that arise at home. Medication response: Toradol, Tylenol. Response to treatment: the patient's symptoms have markedly improved after treatment. Special discussion: I discussed with the patient/guardian in detail that at this point there is no indication for admission to the hospital. It is understood, however, that if the symptoms persist or worsen the patient needs to return immediately for re-evaluation. Based on the history and exam findings, there is no indication for further emergent testing or inpatient evaluation. I discussed with the patient/guardian the need to see the orthopedic surgeon for further evaluation of the symptoms. ED course: Recommended patient keep knee immobilizer on. Crutches given and patient recommended to be nonweightbearing. CD and report given to patient to take with him to orthopedics. All questions answered. Strict ER precautions given.. 01/14 14:42 Order name: Knee Left 3 View XRAY; Complete Time: 16:27 dr5 01/14 14:44 Order name: Crutches; Complete Time: 16:27 dr5 Administered Medications: 16:08 Drug: Acetaminophen PO 1000 mg PO once Route: PO; kb4 16:30 Follow up: Response: No adverse reaction kb4 16:08 Drug: Ketorolac IM 30 mg IM once Route: IM; Site: right deltoid; kb4 16:30 Follow up: Response: No adverse reaction kb4 Disposition: 01/15 07:55 Co-signature as Attending Physician, Armaan Phillips MD I agree with the assessment and hayden plan of care. Disposition Summary: 01/14/25 16:56 Discharge Ordered Notes: Location: Home dr5 Condition: Stable dr5 Diagnosis - Effusion, left knee dr5 Followup: dr5 - With: Emergency Department - When: As needed - Reason: Worsening of condition Followup: dr5 - With: Tito Garza MD - When: 1 - 2 days - Reason: Recheck today's complaints, Continuance of care, Re-evaluation by your physician Followup: dr5 - With: Davian Orozco MD - When: 1 - 2 days - Reason: Recheck today's complaints, Continuance of care, Re-evaluation by your physician Discharge Instructions: - Discharge Summary Sheet dr5 - Knee Effusion dr5 - RICE Therapy for Routine Care of Injuries dr5 Forms: - Work release form dr5 - Medication Reconciliation Form dr5 - Patient Portal Instructions dr5 - Leadership Thank You Letter dr5 Prescriptions: - Tramadol 50 mg Oral Tablet - take 1 tablet ORAL route every 8 hours as needed; 12 tablet; Refills: 0, dr5 Product Selection Permitted - Medrol (Juan) 4 mg Oral Tablets, Dose Pack - take 1 tablet ORAL route as directed - follow package instructions; 1 packet; dr5 Refills: 0, Product Selection Permitted Signatures: Dispatcher [employer] Armaan Munoz MD MD cha Williams, Irene, RN RN iw Rhodes, Dustin, VIRTUALIZATION ENGINEER-C VIRTUALIZATION ENGINEER-Cdr5 Zoë Calix RN RN kb4
[2025-01-14 21:27] VITALS: TEMP 97.2
[2025-01-14 21:56] VITALS: BP 129/86; O2SAT 100
== END 2025-01-14 17:08 | disposition home or self-care (01) ==
LOC: ER 13:58
DX: M25.462 Effusion, left knee (principal)
CPT/HCPCS: 73562; 96372; 99284; J1885